=== PATIENT | female | born 1995 | race Caucasian/White ===

== ENCOUNTER 2024-10-02 20:35 | Emergency (ER) | payer MEDICAID ==
[~2024-10-02] VITALS: Ht 167.6 cm; Wt 64.0 kg
[2024-10-02 20:41] VITALS: BP 114/82; PULSE 78; RESP 18; TEMP 36.7; O2SAT 99
[2024-10-02 21:40] LABS: *AMPHETAMINES SCREEN URINE NEGATIVE (NEGATIVE); *BARBITURATES SCREEN URINE NEGATIVE (NEGATIVE); *BENZODIAZEPINES SCREEN URINE NEGATIVE (NEGATIVE); *COCAINE SCREEN URINE NEGATIVE (NEGATIVE)
[2024-10-02 21:41] LABS: CANNABINOID URINE SCREEN PRESUMPTIVE POSITIVE (NEGATIVE); ECSTASY MDMA SCREEN URINE NEGATIVE (NEGATIVE); METHADONE URINE SCREEN NEGATIVE (NEGATIVE); OPIATES URINE SCREEN NEGATIVE (NEGATIVE); PHENCYCLIDINE URINE SCREEN NEGATIVE (NEGATIVE)
[2024-10-02 22:04] LABS: HCG SCREEN NEGATIVE
== END 2024-10-03 00:12 | disposition home or self-care (01) ==
LOC: ER 20:35
DX: F12.90 Cannabis use, unspecified, uncomplicated (principal); Z79.899 Other long term (current) drug therapy
CPT/HCPCS: 80305; 84703; 99283